=== PATIENT | male | born 1950 | race Caucasian/White ===

== ENCOUNTER 2017-05-10 10:06 | Emergency (ER) | payer OTHER ==
[~2017-05-10] VITALS: Ht 170.2 cm; Wt 80.0 kg
[2017-05-10 10:21] VITALS: BP 165/65; PULSE 55; RESP 18; TEMP 98.4; O2SAT 97
--- NOTE | 2017-05-10 10:54 | PD ---
HPI Chief Complaint: Fall Time Seen by Provider: 10:21 Travel History International Travel<30 days: No Contact w/Intl Traveler<30days: No Traveled to known affect area: No History of Present Illness HPI Patient is a 66-year-old male presents emergency department for evaluation for fall from ladder, the patient states he was on a ladder examining a TV projector when the ladder collapsed and he fell about 5 feet landing primarily on his right side and hit his head. His only complaint is that he feels a little fuzzy does have denies any headache. He is not on any blood thinners, denies any focalized weakness extremity pain loss of consciousness, chest pain shortness of breath back pain. Patient symptoms started just prior to arrival, mild in severity, rapidly improving. [facility] Past Medical History Diminished Hearing: No GERD: Yes Past Surgical History Other Surgery: Yes (Inguinal hernia) Social History Alcohol Use: Yes (Socially) Tobacco Use: No Substance Use: No Allergies-Medications (Allergen,Severity, Reaction): Coded Allergies: No Known Allergies (Verified , 09/18/15) Reported Meds & Prescriptions Reported Meds & Active Scripts Active No Active Prescriptions or Reported Medications Review of Systems Except as stated in HPI: all other systems reviewed are Neg Physical Exam Narrative GENERAL: Well-developed well-nourished, no obvious distress. SKIN: Focused skin assessment warm/dry. HEAD: Atraumatic. Normocephalic. No radford signs no raccoons eyes TMs clear bilaterally. EYES: Pupils equal and round. No scleral icterus. No injection or drainage. ENT: No nasal bleeding or discharge. Mucous membranes pink and moist. NECK: Trachea midline. No JVD. CARDIOVASCULAR: Regular rate and rhythm. No murmur appreciated. RESPIRATORY: No accessory muscle use. Clear to auscultation. Breath sounds equal bilaterally. GASTROINTESTINAL: Abdomen soft, non-tender, nondistended. Hepatic and splenic margins not palpable. MUSCULOSKELETAL: No obvious deformities. No clubbing. No cyanosis. No edema. No midline CT or L-spine tenderness, extremities are atraumatic. NEUROLOGICAL: Awake and alert. No obvious cranial nerve deficits. Motor grossly within normal limits. Normal speech. PSYCHIATRIC: Appropriate mood and affect; insight and judgment normal. Data Data Last Documented VS Vital Signs Date Time Temp Pulse Resp B/P (MAP) Pulse Ox O2 Delivery O2 Flow Rate FiO2 05/10/17 10:55 18 Room Air 2/25/18 10:21 98.4 55 165/65 (98) [address] Brain W/O Iv Contrast(Rout) (05/10/17 ) Ct Cerv Spine W/O Contrast (05/10/17 ) Ed Discharge Order (05/10/17 13:25) MDM Medical Decision Making Medical Screen Exam Complete: Yes Emergency Medical Condition: Yes Differential Diagnosis Head injury, neck injury, intracranial hemorrhage, cervical spine fracture seems unlikely per Narrative Course Patient was room to the emergency department, has a vague sensation of fogginess in the head after head injury of fall from a height of [address] head and C-spine are negative for acute injury. The patient self removed his c- collar is ambulated several times to the bathroom and is eager for discharge. He has no other pain that warrants further workup I discussed the results with him he is stable for discharge. Discussed returning to criteria follow-up with a primary care physician. Diagnosis Primary Impression: Closed head injury Scripts No Active Prescriptions or Reported Meds Disposition: 01 DISCHARGE HOME Condition: Stable Gee Blair MD May 10, 2017 10:54
--- NOTE | 2017-05-10 11:18 | RADRPT ---
EXAM DATE/TIME: 05/10/2017 10:40 [facility] COMPARISON: No previous studies available for comparison. INDICATIONS : Fall 5-8 feet from ladder to floor.Hematoma back of head. RADIATION DOSE: 40.59 CTDIvol (mGy) MEDICAL HISTORY : Gastroesophageal reflux disease. Hernia, inguinal. SURGICAL HISTORY : None. ENCOUNTER: Initial ACUITY: 1 day PAIN SCALE: 8/10 LOCATION: occipital TECHNIQUE: Multiple contiguous axial images were obtained of the head. Using automated exposure control and adj ustment of the mA and/or kV according to patient size, radiation dose was kept as low as reasonably a chievable to obtain optimal diagnostic quality images. DICOM format image data is available electro nically for review and comparison. FINDINGS: CEREBRUM: The ventricles are normal for age. No evidence of midline shift, mass lesion, hemorrhage or acute in farction. No extra-axial fluid collections are seen. POSTERIOR FOSSA: The cerebellum and brainstem are intact. The 4th ventricle is midline. The cerebellopontine angle i s unremarkable. EXTRACRANIAL: The visualized portion of the orbits is intact. There is edema/hemorrhage in the posterior right meghan etal scalp. SKULL: The calvaria is intact. No evidence of skull fracture. CONCLUSION: 1. No intracranial abnormality seen. 2. Focal right parietal scalp injury. Augusto Cruz MD on May 10, 2017 at 11:16 Board Certified Radiologist. This report was verified electronically.
--- NOTE | 2017-05-10 13:22 | RADRPT ---
EXAM DATE/TIME: 05/10/2017 10:40 [facility] COMPARISON: No previous studies available for comparison. INDICATIONS : Fall 5-8 feet from ladder to floor.Neck pain. RADIATION DOSE: 23.04 CTDIvol (mGy) MEDICAL HISTORY : Gastroesophageal reflux disease. Hernia, inguinal. SURGICAL HISTORY : None. ENCOUNTER: Initial ACUITY: 1 day PAIN SCALE: 8/10 LOCATION: Bilateral posterior neck TECHNIQUE: Volumetric scanning of the cervical spine was performed. Multiplanar reconstructions in the sagittal, coronal and oblique axial planes were performed. Using automated exposure control and adjustment o f the mA and/or kV according to patient size, radiation dose was kept as low as reasonably achievable to obtain optimal diagnostic quality images. DICOM format image data is available electronically f or review and comparison. FINDINGS: VERTEBRAE: Normal vertebral body height. There is moderate diffuse primary bony degenerative changes, disc degen eration and disc space narrowing throughout the entire cervical spine. No acute bony fracture is seen . The odontoid process is intact. ALIGNMENT: No evidence of subluxation. C2-C3: The bony spinal canal is normal in size. No evidence of disc bulge or herniation. The neural forami na are bilaterally patent. C3-C4: The bony spinal canal is normal in size. No evidence of disc bulge or herniation. The neural forami na are bilaterally patent. C4-C5: There is broad-based bulging with disc osteophyte complex. There is narrowing of the neural foramina bilaterally. C5-C6: Broad-based bulging with disc osteophyte complex. Narrowing of the neural foramina bilaterally. C6-C7: Focal small left paracentral with disc osteophyte complex. The neural foramina are patent bilaterally . C7-T1: The bony spinal canal is normal in size. No evidence of disc bulge or herniation. The neural forami na are bilaterally patent. CONCLUSION: 1. No acute bony fracture. 2. Diffuse primary bony degenerative changes, disc degeneration and disc space height at the entire c ervical spine. 3. Disc osteophyte complexes are noted at multiple levels. Yury Valencia MD on May 10, 2017 at 13:17 Board Certified Radiologist. This report was verified electronically.
== END 2017-05-10 13:32 | disposition home or self-care (01) ==
LOC: NEPC 10:06
DX: S09.90XA Unspecified injury of head, initial encounter (principal); W11.XXXA Fall on and from ladder, initial encounter; K21.9 Gastro-esophageal reflux disease without esophagitis
CPT/HCPCS: 70450; 72125